=== PATIENT | male | born 1955 | race Caucasian/White ===

== ENCOUNTER 2022-02-08 20:15 | Inpatient (IN) | payer MEDICAID, MEDICARE, OTHER ==
[~2022-02-08] VITALS: Ht 180.3 cm; Wt 127.5 kg
[2022-02-08] MEDS ORDERED: FUROSEMIDE 40 MG/4 ML VIAL IV ONE (20:30)
[2022-02-08 20:46] LABS: Basophils # (auto) 0.2 10 ^3/uL (0-0.2); Basophils % (auto) 1.2 % (0.0-2.0); Eosinophils # (auto) 0.2 10 ^3/uL (0-0.8); Eosinophils % (auto) 1.5 % (0.0-7.0); Hemoglobin 14.4 g/dL (13.5-17.5); Lymphocytes # (auto) 2.2 10 ^3/uL (0.4-5.4); Lymphocytes % (auto) 16.7 % (10.0-50.0); Mean Corpuscular Hemoglobin 30.7 pg (28.0-32.0); Mean Corpuscular Hgb Conc. 33.5 g/dL (32.0-36.0); Mean Corpuscular Volume 91.5 fL (80.0-100.0); Monocytes # (auto) 1.1 10 ^3/uL (0-1.3); Monocytes % (auto) 8.3 % (0.0-12.0); Neutrophils # (auto) 9.4 10 ^3/uL (1.6-8.6); Neutrophils % (auto) 72.3 % (37.0-80.0); Nucleated Red Blood Cells % 0.1 %; Red Cell Distribution Width 15.8 % (11.8-14.3)
[2022-02-08] MEDS ORDERED: dilTIAZem 25 MG/5 ML VIAL IV ONE (21:00)
[2022-02-08] MEDS ORDERED: dilTIAZem 125mg/125ml BAG KIT 125 ML IV ONE (21:00)
[2022-02-08 21:04] LABS: Albumin 3.4 g/dL (3.4-5.0); Calcium 8.5 mg/dL (8.5-10.1); Potassium 4.2 mmol/L (3.5-5.1)
[2022-02-08 21:06] LABS: INR 1.14 (0.9-1.15); Partial Thromboplastin Time 27.1 sec (23.6-33.0)
[2022-02-08 21:07] LABS: BUN/Creatinine Ratio 19.7; Bilirubin, Total 0.7 mg/dL (0.2-1.0); Total Protein 6.3 g/dL (6.4-8.2)
[2022-02-08] MEDS: ATORVASTATIN 20 MG TAB PO SCH (22:00)
[2022-02-08] MEDS ORDERED: MORPHINE SULFATE INJ 2 MG/ml SYRG IV PRN (22:00)
[2022-02-08] MEDS ORDERED: ONDANSETRON HCL 4 MG/2 ML VIAL IV PRN (22:00)
[2022-02-08] MEDS ORDERED: NITROGLYCERIN 0.4 MG SL TAB SL PRN (22:00)
[2022-02-08] MEDS: ATENOLOL 25 MG TAB PO SCH (22:00)
[2022-02-08] MEDS: ACCU-CHEK COMFORT CURVE STRIP VI SCH (22:00)
[2022-02-08] MEDS ORDERED: ACETAMINOPHEN 325 MG TAB PO PRN (22:00)
[2022-02-08] MEDS: InsuLIN REG 1unit/0.01ml Soln (100units/ml) SC SCH (22:00)
[2022-02-08] MEDS ORDERED: DEXTROSE (50%) 50ML SYRG IV PRN (22:00)
[2022-02-08] MEDS ORDERED: TEMAZEPAM 15 MG CAP PO PRN (22:00)
[2022-02-08] MEDS ORDERED: LEVALBUTEROL HCL 1.25 MG/3 ML NEB ONE (22:17)
[2022-02-08] MEDS: dilTIAZem 125mg/125ml BAG KIT 100 ML IV SCH (23:15)
[2022-02-08] MEDS: ENALAPRIL MALEATE 10 MG TAB PO SCH (23:55)
[2022-02-09] MEDS ORDERED: FUROSEMIDE 20 MG/2 ML VIAL IV SCH ×2 (06:00→12:45)
[2022-02-09] MEDS: LEVALBUTEROL HCL 1.25 MG/3 ML NEB NEB SCH ×4 (06:00→18:12)
[2022-02-09] MEDS: InsuLIN REG 1unit/0.01ml Soln (100units/ml) SC SCH ×4 (06:12→23:37)
[2022-02-09] MEDS: ACCU-CHEK COMFORT CURVE STRIP VI SCH ×3 (07:11→17:20)
[2022-02-09] MEDS: dilTIAZem 125mg/125ml BAG KIT 100 ML IV SCH (07:45)
[2022-02-09 08:55] LABS: Urine Bacteria NONE SEEN /hpf (None Seen); Urine Blood Negative /uL (Negative); Urine Specific Gravity 1.009 (1.001-1.035); Urine WBC <1 /hpf (0 - 3)
[2022-02-09] MEDS: amLODIPine BESYLATE 5 MG TAB PO SCH (10:19)
[2022-02-09] MEDS: PANTOPRAZOLE 40 MG TAB PO SCH (10:20)
[2022-02-09] MEDS: ENOXAPARIN SOD 40 MG/0.4 ML SYRINGE SC SCH (10:20)
[2022-02-09] MEDS: ATENOLOL 25 MG TAB PO SCH (10:21)
[2022-02-09] MEDS: ENALAPRIL MALEATE 10 MG TAB PO SCH (10:23)
[2022-02-09 10:58] LABS: Hematocrit 42.7 % (41.0-53.0); Hemoglobin 13.8 g/dL (13.5-17.5); Mean Corpuscular Hgb Conc. 32.2 g/dL (32.0-36.0); Mean Corpuscular Volume 93.2 fL (80.0-100.0); Red Blood Cells 4.58 10^6/uL (4.5-5.90); White Blood Cell 12.4 10^3/uL (4.4-10.8)
[2022-02-09 11:06] VITALS: BP 142/78
[2022-02-09 11:08] LABS: Band Neutrophils % (manual) 0; Basophils % (manual) 0 (0.0-2.0); Blast Cells 0; Eosinophils % (manual) 0 (0-7); Metamyelocytes % 0; Myelocytes % 0; Promyelocytes % 0; Reactive Lymphocytes 0
[2022-02-09 11:52] LABS: Albumin 3.1 g/dL (3.4-5.0); Calcium 8.6 mg/dL (8.5-10.1); Potassium 3.8 mmol/L (3.5-5.1)
[2022-02-09 11:56] LABS: BUN/Creatinine Ratio 19.8
[2022-02-09 12:00] LABS: Lymphocytes % (manual) 11 (10.0-50.0); Monocytes % (manual) 8 (0-12)
[2022-02-09] MEDS: FUROSEMIDE INJECTION 100 MG in SODIUM CHL 0.9% 100 ML IV SCH ×2 (17:11→21:03)
[2022-02-09 21:55] VITALS: BP 123/75
[2022-02-09 21:57] VITALS: BP 123/75
[2022-02-10] MEDS: ATORVASTATIN 20 MG TAB PO SCH ×2 (01:11→22:06)
[2022-02-10] MEDS: POTASSIUM CHL 20 Meq TABLET PO SCH ×3 (01:11→22:08)
[2022-02-10] MEDS: ATENOLOL 25 MG TAB PO SCH ×3 (01:12→22:07)
[2022-02-10] MEDS: ENALAPRIL MALEATE 10 MG TAB PO SCH ×3 (01:13→22:06)
[2022-02-10] MEDS: ACCU-CHEK COMFORT CURVE STRIP VI SCH ×5 (01:14→22:07)
[2022-02-10 04:45] VITALS: BP 142/83
[2022-02-10] MEDS: InsuLIN REG 1unit/0.01ml Soln (100units/ml) SC SCH ×4 (06:33→22:21)
[2022-02-10 09:00] VITALS: BP 139/76
[2022-02-10] MEDS: PANTOPRAZOLE 40 MG TAB PO SCH (09:13)
[2022-02-10] MEDS: ENOXAPARIN SOD 40 MG/0.4 ML SYRINGE SC SCH (09:13)
[2022-02-10] MEDS: amLODIPine BESYLATE 5 MG TAB PO SCH (09:15)
[2022-02-10] MEDS: FUROSEMIDE INJECTION 100 MG in SODIUM CHL 0.9% 100 ML IV SCH ×3 (12:30→19:44)
[2022-02-10 12:55] VITALS: BP 139/84
[2022-02-10 16:57] VITALS: BP 135/81
[2022-02-10] MEDS: LEVALBUTEROL HCL 1.25 MG/3 ML NEB NEB SCH ×2 (18:06)
[2022-02-10 22:00] VITALS: BP 124/83
[2022-02-11] VITALS (9 sets, daily range): BP systolic 102–158; BP diastolic 66–90
[2022-02-11] MEDS: LEVALBUTEROL HCL 1.25 MG/3 ML NEB NEB SCH ×4 (00:06→18:34)
[2022-02-11] MEDS: ACCU-CHEK COMFORT CURVE STRIP VI SCH ×4 (06:20→21:43)
[2022-02-11] MEDS: FUROSEMIDE INJECTION 100 MG in SODIUM CHL 0.9% 100 ML IV SCH ×2 (06:27→18:55)
[2022-02-11] MEDS: InsuLIN REG 1unit/0.01ml Soln (100units/ml) SC SCH ×4 (06:40→21:46)
[2022-02-11] MEDS: POTASSIUM CHL 20 Meq TABLET PO SCH ×2 (09:40→21:33)
[2022-02-11] MEDS: PANTOPRAZOLE 40 MG TAB PO SCH (09:41)
[2022-02-11] MEDS: amLODIPine BESYLATE 5 MG TAB PO SCH (09:41)
[2022-02-11] MEDS: ENOXAPARIN SOD 40 MG/0.4 ML SYRINGE SC SCH (09:42)
[2022-02-11] MEDS: ATENOLOL 25 MG TAB PO SCH ×2 (09:42→21:32)
[2022-02-11] MEDS: ENALAPRIL MALEATE 10 MG TAB PO SCH ×2 (09:45→21:30)
[2022-02-11] MEDS ORDERED: IOHEXOL 350 MG/ML 100ML IJ ONE (15:50)
[2022-02-11] MEDS ORDERED: ANGIOMAX 250 MG VIAL IV ONE (15:53)
[2022-02-11] MEDS ORDERED: fentaNYL CITRATE 100 MCG/2 ML VL ONE (15:53)
[2022-02-11] MEDS ORDERED: SODIUM CHL 0.9% 0 ML ONE (15:54)
[2022-02-11] MEDS ORDERED: MIDAZOLAM HCL 2MG/2ML 2ml VIAL (1mg/ml) ONE (15:54)
[2022-02-11] MEDS ORDERED: LIDOCAINE 2%HCL (LOCAL ANESTH.) INJ 10ml MDV ONE (15:55)
[2022-02-11] MEDS: ATORVASTATIN 20 MG TAB PO SCH (21:32)
[2022-02-12] MEDS: LEVALBUTEROL HCL 1.25 MG/3 ML NEB NEB SCH ×4 (03:15→18:28)
[2022-02-12] MEDS: FUROSEMIDE INJECTION 100 MG in SODIUM CHL 0.9% 100 ML IV SCH (04:58)
[2022-02-12 05:00] VITALS: BP 158/70
[2022-02-12] MEDS: ACCU-CHEK COMFORT CURVE STRIP VI SCH ×4 (06:13→22:04)
[2022-02-12] MEDS: InsuLIN REG 1unit/0.01ml Soln (100units/ml) SC SCH ×4 (06:13→22:05)
[2022-02-12 09:00] VITALS: BP 140/81
[2022-02-12 09:46] VITALS: BP 158/70
[2022-02-12] MEDS: amLODIPine BESYLATE 5 MG TAB PO SCH (10:41)
[2022-02-12] MEDS: POTASSIUM CHL 20 Meq TABLET PO SCH ×2 (10:42→21:59)
[2022-02-12] MEDS: ENOXAPARIN SOD 40 MG/0.4 ML SYRINGE SC SCH (10:42)
[2022-02-12] MEDS: PANTOPRAZOLE 40 MG TAB PO SCH (10:42)
[2022-02-12] MEDS: ATENOLOL 25 MG TAB PO SCH ×2 (10:43→22:04)
[2022-02-12] MEDS: ENALAPRIL MALEATE 10 MG TAB PO SCH ×2 (10:43→22:04)
[2022-02-12] MEDS ORDERED: METF-869 PO (11:10)
[2022-02-12] MEDS ORDERED: ATEN25TA PO (11:10)
[2022-02-12] MEDS ORDERED: AMLO-496 PO (11:10)
[2022-02-12] MEDS ORDERED: HYDR25TA4 PO (11:11)
[2022-02-12] MEDS ORDERED: LACTULOSE 20Gm/30ML SOLN PO ONE (11:15)
[2022-02-12 13:00] VITALS: BP 119/73
[2022-02-12 17:00] VITALS: BP 115/69
[2022-02-12] MEDS ORDERED: IOHEXOL 350 MG/ML 100ML IJ ONE (17:07)
[2022-02-12 22:00] VITALS: BP 108/64
[2022-02-12] MEDS: ATORVASTATIN 20 MG TAB PO SCH (22:00)
[2022-02-13 05:00] VITALS: BP 116/69
[2022-02-13] MEDS: LEVALBUTEROL HCL 1.25 MG/3 ML NEB NEB SCH ×2 (06:20)
[2022-02-13] MEDS: ACCU-CHEK COMFORT CURVE STRIP VI SCH ×2 (06:33→11:30)
[2022-02-13] MEDS: InsuLIN REG 1unit/0.01ml Soln (100units/ml) SC SCH ×2 (06:34→11:30)
[2022-02-13 07:55] VITALS: BP 135/71
[2022-02-13 09:00] VITALS: BP 135/71
[2022-02-13] MEDS ORDERED: POTA10TA51 PO (09:16)
[2022-02-13] MEDS ORDERED: ATO40T PO (09:16)
[2022-02-13] MEDS ORDERED: FURO1TAB31 PO (09:16)
[2022-02-13] MEDS ORDERED: ALBUAER3 IN (09:16)
[2022-02-13] MEDS ORDERED: LEVO500T31 PO (09:19)
[2022-02-13] MEDS ORDERED: levoFLOXacin 500MG 100 ML IV ONE (09:30)
[2022-02-13] MEDS: amLODIPine BESYLATE 5 MG TAB PO SCH (10:25)
[2022-02-13] MEDS: ENALAPRIL MALEATE 10 MG TAB PO SCH (10:25)
[2022-02-13] MEDS: POTASSIUM CHL 20 Meq TABLET PO SCH (10:25)
[2022-02-13] MEDS: ATENOLOL 25 MG TAB PO SCH (10:26)
[2022-02-13] MEDS: PANTOPRAZOLE 40 MG TAB PO SCH (10:26)
[2022-02-13] MEDS: ENOXAPARIN SOD 40 MG/0.4 ML SYRINGE SC SCH (10:26)
[2022-02-13 10:55] VITALS: BP 115/62
== END 2022-02-13 12:51 | disposition home or self-care (01) | DRG 192 ==
LOC: EDBD 20:15 → ER 20:17 → TELE 21:57 → TELE-EAST 02-09 21:19
PROVIDERS: ADMIT Nurse Practitioner; ATTEND Family Medicine
PROC: 4A023N7 Measurement of Cardiac Sampling and Pressure, Left Heart, Percutaneous Approach (ICD-10-PCS; principal; 2022-02-11)
PROC: B211YZZ Fluoroscopy of Multiple Coronary Arteries using Other Contrast (ICD-10-PCS; 2022-02-11)
PROC: B215YZZ Fluoroscopy of Left Heart using Other Contrast (ICD-10-PCS; 2022-02-11)
PROC: B41CYZZ Fluoroscopy of Pelvic Arteries using Other Contrast (ICD-10-PCS; 2022-02-11)
DX: I11.0 Hypertensive heart disease with heart failure (principal); J96.01 Acute respiratory failure with hypoxia; I50.43 Acute on chronic combined systolic (congestive) and diastolic (congestive) heart failure; E66.01 Morbid (severe) obesity due to excess calories; J44.9 Chronic obstructive pulmonary disease, unspecified; Z20.822 Contact with and (suspected) exposure to COVID-19; E78.00 Pure hypercholesterolemia, unspecified; I25.5 Ischemic cardiomyopathy; R79.89 Other specified abnormal findings of blood chemistry; I48.91 Unspecified atrial fibrillation; E11.9 Type 2 diabetes mellitus without complications; F17.210 Nicotine dependence, cigarettes, uncomplicated; Z95.810 Presence of automatic (implantable) cardiac defibrillator; Z68.35 Body mass index [BMI] 35.0-35.9, adult
CPT/HCPCS: 36415; 71045; 71275; 80053; 81001; 82962; 83036; 83880; 84132; 84484; 85007; 85025; 85027; 85379; 85610; 85730; 93005; 93306; 94640; 96365; 96366; 96367; 96372; 96375; 96376; 99152; 99291; G0378; J1815; J1956; J2001; J2250